=== PATIENT | female | born 1975 | race Caucasian/White ===

== ENCOUNTER 2018-05-22 22:51 | Emergency (ER) | payer OTHER, SELFPAY ==
[2018-05-22 22:52] VITALS: BP 156/104; PULSE 91; RESP 20; TEMP 36.8; O2SAT 94; BMI 58.5
[2018-05-22 23:17] LABS: Mucous, Urine 0 SEEN /hpf (<or=2+); Red Blood Cells-Urine 0 SEEN /hpf (0-5)
[2018-05-22] MEDS: Morphine 4 MG/ML Syringe IV (23:19)
[2018-05-22] MEDS: Ondansetron 4 MG/2 ML Vial IV (23:20)
[2018-05-22] MEDS: 0.9% Normal Saline 1,000 ML 1000 ML IV (23:20)
[2018-05-22] MEDS: Mag Hydrox/Al Hydrox/Simeth 30 ML UDC PO (23:20)
[2018-05-22 23:22] LABS: Color, Urine Yellow (Yellow); Glucose, Dipstick Normal (Normal); Ketone-Dipstick Negative (Negative); Leukocyte Esterase-Dipstick 25 /ul (Negative); Nitrite-Dipstick Negative (Negative); Occult Blood-Urine Negative /ul (Negative); Protein-Dipstick 15 mg/dl (Negative); Specific Gravity, Urine 1.025 (1.002-1.030); Urine Bilirubin Dipstick Negative (Negative); Urine Clarity Sl. Cloudy (Clear); Urine Urobilinogen 1 mg/dl (Normal)
[2018-05-22 23:40] LABS: ALB/GLOB Ratio 0.8 RATIO (0.9-2.4); AST(SGOT) 20 U/L (15-37); Alanine Aminotransfer ALT/SGPT 25 U/L (13-56); Albumin, Serum 3.2 g/dL (3.2-5.0); Alkaline Phosphatase 114 U/L (45-117); Anion Gap 4 (5-15); BUN 7 mg/dL (7-18); BUN/Creat Ratio 7.7 RATIO (10-20); Calcium,Total 8.5 mg/dL (8.5-10.1); Chloride 102 mmol/L (98-107); Creatinine, Serum 0.91 mg/dL (0.55-1.02); EST Glomerular Filtration Rate 73 mL/min (>60); Est Glom Filt Rate - Afr Amer 88 mL/min (>60); Globulin 4.1 g/dL (2.2-4.2); Glucose 96 mg/dL (74-106); Lipase 131 U/L (73-393); Potassium 4.2 mmol/L (3.5-5.1); Protein, Total 7.3 g/dL (6.4-8.2); Sodium Level 137 mmol/L (136-145)
[2018-05-22 23:43] LABS: Bacteria RARE /hpf (None Seen); Squamous Epithelial Cells - UA 0-5 SEEN /hpf (5-10); White Blood Cells 0-5 SEEN /hpf (0-5)
[2018-05-22 23:47] LABS: Absolute Lymphocyte Count 1.48 X10^3/ul (0.83-4.51); Basophil# 0.05 X10^3/uL; Basophil% 0.6 % (0-1); Eosinophil# 0.83 X10^3/uL; Eosinophils% 10.1 % (0-5); Hematocrit 47.3 % (37-47); Hemoglobin 15.1 g/dl (12.0-15.0); Lymphocyte # 1.48 X10^3/ul (4.0); Lymphocyte % 18.1 % (19-41); Mean Corp Hgb Conc 31.9 g/gl (32-36); Mean Corpuscular Hgb 28.5 pg (27.0-32.0); Mean Corpuscular Volume 89.2 fL (81-99); Mean Platelet Vol. 10.9 fl (6.2-12.0); Monocyte# 0.78 X10^3/uL; Monocyte% 9.5 % (0-10); Neutrophil # 5.04 X10^3/uL (2.7-7.7); Neutrophil % 61.6 % (47-70); Platelet Count 287 K/mm3 (150-450); RBC Distribution Width CV 12.8 % (11.6-14.6); RBC Distribution Width SD 41.5 fl (35.1-43.9); White Blood Count 8.2 K/mm3 (4.4-11.0)
[2018-05-22 23:54] LABS: POSITIVE COUNT NO; POSITIVE DIFFERENTIAL NO; POSITIVE MORPHOLOGY NO
[2018-05-23 00:47] LABS: Pregnancy, Serum, hCG Quali. NEGATIVE Negative (0-9 Nonpreg)
[2018-05-23] MEDS: Morphine 4 MG/ML Syringe IV (01:19)
[2018-05-23 01:25] VITALS: BP 127/83; PULSE 88; RESP 16; O2SAT 96
--- NOTE | 2018-05-23 02:15 | ED.VISSUMM ---
- ER Visit Summary Date of Service: 05/23/18 Chief Complaint: Diarrhea History of Present Illness: The patient is a 42 F with diarrhea for over a week now. The patient also reports epigastric pain and burping. She has been taking Imodium but it is not helping. She denies any blood in the diarrhea, but it is completely liquid. Denies any recent antibiotics, travel, or new foods. Denies fevers. Denies chest pain or shortness of breath. Denies urinary or [employer] symptoms. Physical Examination: Afebrile and vital signs unremarkable. Patient has epigastric tenderness. No guarding or rebound. No distention. Heart regular. Lungs clear. Skin appears normal. Test Results: CBC, CMP, lipase, urinalysis, testing unremarkable. CT showed postoperative changes, fatty liver, mild splenomegaly, liquid feces, small bowel gas without obstruction. Emergency Department Course and Treatment: Patient received fluids, morphine, Zofran, and a GI cocktail. She did require an additional dose of morphine for pain. Her workup was fairly unremarkable. Stool studies are pending. She says that her stool is completely liquid. I am concerned for C. difficile and will cover empirically with Cipro and vancomycin PO. The patient has allergies to penicillin, sulfa, and Flagyl. Patient was advised to stay hydrated. Return for any new or worsening issues. Return if unable to take medication. Treatment Plan: Imodium, Zofran, Cipro, vancomycin. Stay hydrated. Disposition: Discharge Impression: 1. Diarrheal illness This note was generated with [employer] dictation software. It may contain incorrect words, spelling, and punctuation that were not noted in review of the chart prior to signing ED Disposition - Plan for ED Patient: Chief Complaint: Abd Pain Referrals: Care Physician,No Primary [Primary Care Provider] -
--- NOTE | 2018-05-23 02:19 | ED.DCSUM_ITS ---
- ER Visit Summary Date of Service: 05/23/18 Chief Complaint: Diarrhea History of Present Illness: The patient is a 42 F with diarrhea for over a week now. The patient also reports epigastric pain and burping. She has been taking Imodium but it is not helping. She denies any blood in the diarrhea, but it is completely liquid. Denies any recent antibiotics, travel, or new foods. Denies fevers. Denies chest pain or shortness of breath. Denies urinary or [employer] symptoms. Physical Examination: Afebrile and vital signs unremarkable. Patient has epigastric tenderness. No guarding or rebound. No distention. Heart regular. Lungs clear. Skin appears normal. Test Results: CBC, CMP, lipase, urinalysis, testing unremarkable. CT showed postoperative changes, fatty liver, mild splenomegaly, liquid feces, small bowel gas without obstruction. Emergency Department Course and Treatment: Patient received fluids, morphine, Zofran, and a GI cocktail. She did require an additional dose of morphine for pain. Her workup was fairly unremarkable. Stool studies are pending. She says that her stool is completely liquid. I am concerned for C. difficile and will cover empirically with Cipro and vancomycin PO. The patient has allergies to penicillin, sulfa, and Flagyl. Patient was advised to stay hydrated. Return for any new or worsening issues. Return if unable to take medication. Treatment Plan: Imodium, Zofran, Cipro, vancomycin. Stay hydrated. Disposition: Discharge Impression: 1. Diarrheal illness This note was generated with [employer] dictation software. It may contain incorrect words, spelling, and punctuation that were not noted in review of the chart prior to signing ED Disposition - Plan for ED Patient: Chief Complaint: Abd Pain Referrals: Care Physician,No Primary [Primary Care Provider] -
--- NOTE | 2018-05-23 02:19 | ED.DEP ---
ED Disposition - Plan for ED Patient: Chief Complaint: Abd Pain Instructions: Treating Diarrhea Prescriptions: Ondansetron [Zofran Odt] 4 mg PO Q8H PRN PRN #10 tab PRN Reason: Nausea Ciprofloxacin [Cipro] 500 mg PO BID 5 Days #10 tab Vancomycin [Vancocin] 125 mg PO Q6H 10 Days #40 cap
[2018-05-23 02:21] VITALS: BP 126/78; PULSE 87; RESP 16; O2SAT 98
[2018-05-23] MEDS: Ciprofloxacin 500 MG Tablet PO (02:26)
--- NOTE | 2018-05-23 23:34 | CT_ITS ---
STUDY: CT ABDOMEN AND PELVIS WITH CONTRAST REASON FOR EXAM: Female, 42 years old. Epigastric pain, diarrhea, and burping for one week. Symptoms are now worse. Elevated blood pressure. RADIATION DOSAGE (If Supplied By Facility): CTDIvol = ( 20.40 ) mGy, DLP = ( 1337.27 ) mGycm TECHNIQUE: Transaxial images were obtained from the dome of the diaphragm to the symphysis pubis without oral contrast. 100ML ml of Isovue 300 contrast was administered. Sagittal and coronal images were reconstructed. Individualized dose optimization techniques were used for this CT. COMPARISON: None. FINDINGS: The visualized lung bases are unremarkable. The visualized portions of the heart are within normal limits. There is decreased attenuation of the liver consistent with steatosis. There are surgical clips in the gallbladder fossa consistent with a prior cholecystectomy. There is mild splenomegaly. Normal pancreas. Normal bilateral adrenal glands. Normal right kidney. Normal left kidney. Normal visualized stomach. There is somewhat prominent gas small bowel loops without abnormal distention. Otherwise, normal small bowel. There are somewhat fecal material in the colon, consistent with given history of diarrhea. Otherwise normal colon, with no demonstrated mural thickening or diverticulitis.. There is non-visualization of the appendix. There is no evidence for appendicitis. Normal abdominal aorta. Normal inferior vena cava. Normal retroperitoneum. Normal urinary bladder. There is a T-shaped IUD which appears to be in adequate position, within the fundus and body of uterus. There is a small umbilical hernia containing fat, but no bowel. There are multilevel degenerative changes of the visualized lumbar spine. CT/Abdomen/Pelvis W IV Cont ONLY IMPRESSION: Previous cholecystectomy. IUD in place. Fatty liver. Mild splenomegaly. Liquid feces in the colon, consistent with given history of diarrhea. Otherwise, normal appearing colon with no demonstrated mural thickening or evidence for diverticulitis. Prominent small bowel gas with no evidence for obstruction. Otherwise, normal-appearing small bowel.. Electronically Signed: Dmitri Parker MD at 1:55 EST , Service support ,
== END 2018-05-23 02:37 | disposition home or self-care (01) ==
LOC: ED 23:22
PROVIDERS: Emergency Provider Emergency Medicine
DX: R19.7 Diarrhea, unspecified (principal); K76.0 Fatty (change of) liver, not elsewhere classified; R16.1 Splenomegaly, not elsewhere classified; R10.9 Unspecified abdominal pain; R11.0 Nausea; Z88.0 Allergy status to penicillin; Z90.49 Acquired absence of other specified parts of digestive tract; Z97.5 Presence of (intrauterine) contraceptive device
CPT/HCPCS: 74177; 80053; 81001; 83630; 83690; 84703; 85025; 87177; 87209; 87506; 99284; J7030; Q9967; A4216; J2405

== ENCOUNTER 2018-08-25 23:12 | Emergency (ER) | payer MEDICAID, SELFPAY ==
[2018-08-25 23:13] VITALS: BP 141/85; PULSE 65; RESP 16; TEMP 36.8; O2SAT 99; BMI 61.3
[2018-08-25 23:28] VITALS: RESP 18
[2018-08-25] MEDS: Ibuprofen 400 MG Tablet 800 MG PO (23:39)
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
[2018-08-25 23:53] VITALS: BP 131/79; PULSE 76; RESP 20; O2SAT 98
--- NOTE | 2018-08-25 23:54 | ED.RN ---
THIS NURSE REVIEWED D/C INSTRUCTIONS WITH PT. PT VERBALIZED UNDERSTANDING OF INSTRUCTIONS. PT DENIES FURTHER NEEDS OR QUESTIONS AT THIS TIME.
== END 2018-08-25 23:55 | disposition home or self-care (01) ==
LOC: ED 23:44
PROVIDERS: Emergency Provider Emergency Medicine
DX: S09.90XA Unspecified injury of head, initial encounter (principal); S16.1XXA Strain of muscle, fascia and tendon at neck level, initial encounter; V89.2XXA Person injured in unspecified motor-vehicle accident, traffic, initial encounter; Y93.9 Activity, unspecified; Y92.410 Unspecified street and highway as the place of occurrence of the external cause; Y99.9 Unspecified external cause status
CPT/HCPCS: 99283

== ENCOUNTER 2020-02-04 19:30 | Emergency (ER) | payer BC, SELFPAY ==
[2020-02-04 19:31] VITALS: BP 145/92; PULSE 89; RESP 18; TEMP 36.1; O2SAT 97; BMI 61.8
--- NOTE | 2020-02-04 21:01 | ED.VIS.URI ---
History of Present Illness Chief Complaint: Ear Problem Informant: Patient Onset: Days - 2-3 Context: Gradual Onset Timing: Continuous Quality: sore/pain Location: left ear Current Severity: Severe Maximum Severity: Severe Worsened by: - - touching or moving ear, putting H2O2 drops in today burned Relieved by: - - nothing Associated Symptoms: - - no fevers. Negative for: Nasal Congestion, Headache, Nausea, Vomiting Narrative: Patient states she works for [employer], she has to wear a headset, it usually is over her left ear, she has had recurrent bouts of otitis externa according to her description, the drops usually help with. She has another episode now. She has trouble hearing out of it, no fevers or chills, no systemic symptoms. She denies swimming lately. She denies any discharge but she states it is hard to tell because periodically for the last 3 or so days she has been putting hydrogen peroxide in there. She states she now wears an ear piece in her ear, that may be making things worse, but she is just using her right ear now that her left one hurts a bad. Past Medical History - Allergies and Home Meds Allergies/Adverse Reactions: Allergies Penicillins Allergy (Verified 02/04/20 19:33) Hives sulfamethoxazole [From Bactrim] Adverse Reaction (Verified 02/04/20 19:33) Itching trimethoprim [From Bactrim] Adverse Reaction (Verified 02/04/20 19:33) Itching Primary Care Physician: Care Physician,No Primary [Primary Care Provider] - Past Medical History: None Smoking Status: Never smoker Review of Systems General: Denies: Chills, Fever, Sweats Eyes: Denies: Visual changes - bilaterally, Diplopia ENT: Reports: Left ear pain. Denies: Rhinorrhea, Sore throat Gastrointestinal: Denies: Abdominal pain, Nausea, Vomiting Skin: Denies: Rash, Wounds Neurological: Denies: Headache, Weakness, Numbness Physical Exam Vital Signs/Narrative: Vital Signs Temp Pulse Resp BP Pulse Ox 02/04/20 19:31 96.9 F L 89 18 145/92 H 97 Inital Vital Signs reviewed: Yes General: Well nourished, Well developed, Obese, - - No acute distress Head: Normocephalic, Atraumatic Eyes: Perrl, EOMI Ears: TM's clear, Pain with Movement of Left Tragus - And pinna, significant pain with speculum exam of the left EAC, which is open but diffusely swollen. No focal lesion was seen, however view was partially obstructed by small amounts of cerumen. TM is visible and normal. No otorrhea.. Negative for: Left Mastoid Tenderness - And no erythema Nose: Normal Inspection, No Rhinorrhea Neck: Supple, Nontender, No Lymphadenopathy Skin: Normal color, No rash, No Trauma Neurological: Alert, Oriented x3, Cranial nerves II-XII grossly intact, Normal Strength, Normal Sensation Psychological: Normal affect, Normal Mood Diagnostic/Tx/Re-eval - Medical Decision Making Will prescribe Cortisporin otic suspension equivalent. She is given a bottle here and a prescription in case that runs out. She is referred to ENT in case she has issues, and partially because of the recurrent nature of this, which may be related to her earpiece, it sounds like she has changed recently and the new one could be more likely to cause problems since it is in the ear rather than over the ear, and she has had recurrent otitis externa prior to this hence the referral. ED Disposition - Plan for ED Patient: Disposition: Home or Assisted Living Diagnosis: Left otitis externa Instructions: ED Otitis Externa Prescriptions: Neomycin/Polymyxin B/Hydrocort [[id number] Ear Susp] 4 drp LEFT EAR 4X/DAY 10 Days #1 bot Prescription Printed Referrals: Dank Matthews MD [STAFF PHYSICIAN] - 1 Week if not improving Additional Instructions: Use Cortisporin antibiotic drops 4 drops to affected ear 4 times daily x7-10 days
[2020-02-04] MEDS: Neomycin Sulfate/Polymyxin/Hc Susp 10 ML Bottle 4 DRP OTIC (21:16)
[2020-02-04 21:20] VITALS: BP 123/74; PULSE 82; RESP 18; O2SAT 99
== END 2020-02-04 21:20 | disposition home or self-care (01) ==
LOC: ED 21:07
PROVIDERS: Emergency Provider Emergency Medicine
DX: H60.92 Unspecified otitis externa, left ear (principal); Z88.0 Allergy status to penicillin; Z88.2 Allergy status to sulfonamides; Z88.1 Allergy status to other antibiotic agents; E66.9 Obesity, unspecified
CPT/HCPCS: 99282